=== PATIENT | female | born 1975 | race Caucasian/White ===

== ENCOUNTER → 2018-05-10 16:29 | Outpatient (CLI) | payer BC, SELFPAY ==
--- NOTE | 2018-05-10 16:32 | US_ITS ---
STUDY: ULTRASOUND OF THE FEMALE PELVIS - COMPLETE REASON FOR EXAM: Female, 42 years old. Cramping LMP: 04/21/2018 TECHNIQUE: Transabdominal and Transvaginal TECHNICAL QUALITY: Adequate. COMPARISON: None. FINDINGS: The uterus is anteverted and is in a midline position. The uterus measures 10.4 x 5.7 x 4.0 cm. There is a Nabothian cyst of the cervix. The endometrium measures 9 mm in thickness, and is hyperechoic. There is no demonstrated endometrial mass. There is no demonstrated myometrial mass. I.U.D. - The patient does not have an I.U.D. The right ovary is visualized. The right ovary measures 3.7 x 2.1 x 2.7 cm. There is no right ovarian cyst or ovarian mass. There is no visualized right adnexal mass or complex lesion. There is normal arterial and normal venous vascularity. The left ovary is visualized. The left ovary measures 2.7 x 2.4 x 2.2 cm. There is no left ovarian cyst or ovarian mass. There is no visualized left adnexal mass or complex lesion. There is normal arterial and normal venous vascularity. There is no fluid in the cul-de-sac. The pre void volume of the bladder was 730 ml. The post void volume of the bladder was ml. Polycystic ovary disease: No. US/Pelvic (Non ) IMPRESSION: Normal female pelvis. Electronically Signed: Darío Chandra DO at 18:02 EDT Tel , Service support ,
--- NOTE | 2018-05-10 16:42 | US_ITS ---
STUDY: ULTRASOUND OF THE FEMALE PELVIS - COMPLETE REASON FOR EXAM: Female, 42 years old. Cramping LMP: 04/21/2018 TECHNIQUE: Transabdominal and Transvaginal TECHNICAL QUALITY: Adequate. COMPARISON: None. FINDINGS: The uterus is anteverted and is in a midline position. The uterus measures 10.4 x 5.7 x 4.0 cm. There is a Nabothian cyst of the cervix. The endometrium measures 9 mm in thickness, and is hyperechoic. There is no demonstrated endometrial mass. There is no demonstrated myometrial mass. I.U.D. - The patient does not have an I.U.D. The right ovary is visualized. The right ovary measures 3.7 x 2.1 x 2.7 cm. There is no right ovarian cyst or ovarian mass. There is no visualized right adnexal mass or complex lesion. There is normal arterial and normal venous vascularity. The left ovary is visualized. The left ovary measures 2.7 x 2.4 x 2.2 cm. There is no left ovarian cyst or ovarian mass. There is no visualized left adnexal mass or complex lesion. There is normal arterial and normal venous vascularity. There is no fluid in the cul-de-sac. The pre void volume of the bladder was 730 ml. The post void volume of the bladder was ml. Polycystic ovary disease: No. US/Transvaginal Non- IMPRESSION: Normal female pelvis. Electronically Signed: Darío Chandra DO at 18:02 EDT Tel , Service support ,
== END ==
PROVIDERS: Family Provider Internal Medicine; PCP Internal Medicine; Visit Provider Internal Medicine
DX: R10.9 Unspecified abdominal pain (principal)
CPT/HCPCS: 76830; 76856; 93976

== ENCOUNTER → 2018-05-17 07:55 | Outpatient (CLI) | payer BC, SELFPAY ==
--- NOTE | 2018-05-17 07:57 | US_ITS ---
STUDY: ABDOMINAL ULTRASOUND - RIGHT UPPER QUADRANT REASON FOR VISIT: Female, 42 years old. Cramping abdominal pain. TECHNIQUE: Ultrasound evaluation of the right upper quadrant was performed with real-time and static wilder-scale imaging. TECHNICAL QUALITY: Adequate. COMPARISON: Comparison is made with prior ultrasound dated October 10, 2011. FINDINGS: Liver: The liver measures 14.2 cm. There is increased echogenicity consistent with fatty infiltration. The bile ducts are within normal limits. There is hepatic color flow. The direction of portal flow is hepatopetal. There is no demonstrated mass lesion. Gallbladder: Normal distended gallbladder. The gallbladder wall measures 2.4 mm. There is a negative sonographic Horvath's sign. There is no pericholecystic fluid. There is a solitary echogenic gallstone within the gallbladder. This measures 5 mm x 5 mm x 9 mm. Common Bile Duct (C.B.D.): The common bile duct measures 1.5 mm. Pancreas: Normal size of the head, body and tail of the pancreas. There is normal echogenicity of the pancreas. There is no demonstrated pancreatic mass or cyst. Right Kidney: Normal size of the right kidney. The right kidney measures 10.3 cm x 5.8 cm x 5.4 cm. Normal renal cortex. The right cortex measures 1.7 cm. There is no demonstrated renal mass or cyst. There is no right hydronephrosis. US/Gallbladder IMPRESSION: Fatty infiltration of the liver. Solitary gallstone measuring 5 mm x 5 mm x 9 mm. Electronically Signed: Layton Farr MD at 9:50 EDT Tel [phone], Service support ,
== END ==
PROVIDERS: Family Provider Internal Medicine; PCP Internal Medicine; Visit Provider Internal Medicine
DX: K76.0 Fatty (change of) liver, not elsewhere classified (principal); K80.80 Other cholelithiasis without obstruction
CPT/HCPCS: 76705

== ENCOUNTER → 2018-07-09 09:45 | Outpatient (CLI) | payer BC, SELFPAY ==
[2018-07-10 15:25] LABS: HPV Reflexed? NOT INDICATED
== END ==
PROVIDERS: Visit Provider Obstetrics & Gynecology
DX: Z12.4 Encounter for screening for malignant neoplasm of cervix (principal)
CPT/HCPCS: 88175; G0145

== ENCOUNTER → 2018-11-15 08:19 | Outpatient (CLI) | payer BC, SELFPAY ==
--- NOTE | 2018-11-15 08:22 | BI_ITS ---
MAMMOGRAPHY - BILATERAL SCREENING REASON FOR EXAM: Female, 42 years old. Routine annual screening examination. PERTINENT HISTORY: Grandmother with breast cancer. Aunt with breast cancer. TECHNIQUE: Digital bilateral breast nathan (3D mammographic acquisition) in the CC and MLO projections. 2-D mediolateral oblique (MLO) and craniocaudad (CC) views of both breasts were obtained. CAD: Full Field Digital Mammography with Computer Added Detection was performed. COMPARISON: Comparison is made with prior examination dated August 14, 2017 and February 04, 2016. FINDINGS: Breast Composition: The breasts are almost entirely fatty. There are no dominant masses or suspicious calcifications. Stable small benign-appearing bilateral axillary lymph nodes. No other significant abnormalities are identified. There has been no significant change since the prior study. BI/SCREENING MAMM (CAD), BILAT IMPRESSION: Stable bilateral screening mammogram. Yearly follow-up mammogram recommended. (A) ASSESSMENT CATEGORY: BIRADS Category 2: Benign. A letter regarding these results will be sent to the patient by the facility within 30 days. Approximately 10% of breast cancers are not detected by mammography. A normal mammogram should not delay biopsy of a clinically suspicious abnormality. [id number] Electronically Signed: Layton Farr MD at 9:37 EST Tel [phone], Service support ,
== END ==
PROVIDERS: Family Provider Internal Medicine; PCP Internal Medicine; Referring Provider Obstetrics & Gynecology; Visit Provider Obstetrics & Gynecology
DX: Z12.31 Encounter for screening mammogram for malignant neoplasm of breast (principal); Z80.3 Family history of malignant neoplasm of breast
CPT/HCPCS: 77063; 77067

== ENCOUNTER → 2019-03-13 11:24 | Outpatient (CLI) | payer BC, SELFPAY ==
--- NOTE | 2019-03-13 10:30 | CYST_PTH ---
PATIENT: SUKH ACOSTA LOC: [facility] U#:[id number] AGE/SX: 49/F ROOM: RE03/13/[address]: Dr. Sneha Montes MD : 1975 BED: DIS: SPEC #: [id number] RECD: 03/13/19 10:55 STATUS: DELILAH REQ #: [id number] JONATAN: 03/13/19 10:[address]: Sneha Montes DEPT: SURGICAL PATHOLOGY RECD BY: Quan Buck ENTERED: 03/13/19 11:23 SP TYPE: Cyst OTHR DR: Dr. Daya Rose MD Tissues: Abdomen, NOS Procedures: Surgery Specimen Level III Comments: @ Originally on account #[id number] Req #[id number] HEADER OPERATION: Excision of sebaceous cyst RUQ abdomen PRE-OP DIAGNOSIS: Sebaceous cyst TISSUE SUBMITTED: Cyst RUQ abdomen MICROSCOPIC DIAGNOSIS Cyst right upper quadrant abdomen, excision: Epidermal inclusion cyst with focal chronic inflammation. ALDAIR:nazario 03/14/19 MICROSCOPIC DESCRIPTION Slides are reviewed. GROSS DESCRIPTION Received in fixative is one container labeled with the patient's name and designated cyst RUQ abdomen. The specimen consists of fragments of cyst wall and monaco-white cyst content measuring in aggregate 1.5 x 1.5 x 0.5 cm. The specimen is totally submitted in one cassette. / CE:nazario 03/13/19 TC:5 CPT: 49468
[2019-03-13 10:46] VITALS: BMI 35.5
== END ==
PROVIDERS: Family Provider Internal Medicine; PCP Internal Medicine; Referring Provider Surgery; Visit Provider Surgery
DX: L72.3 Sebaceous cyst (principal)
CPT/HCPCS: 88304

== ENCOUNTER → 2019-08-26 10:55 | Outpatient (CLI) | payer BC, SELFPAY ==
[2019-03-13 10:46] VITALS: BMI 35.5
[2019-08-26 14:02] LABS: M R Staph aureus DNA By PCR Negative (Negative); Probe Check PASS; Specimen Processing Control PASS
== END ==
PROVIDERS: Family Provider Internal Medicine; PCP Internal Medicine; Referring Provider Internal Medicine; Visit Provider Internal Medicine
DX: L73.9 Follicular disorder, unspecified (principal)
CPT/HCPCS: 87641

== ENCOUNTER → 2019-11-11 10:39 | Outpatient (CLI) | payer BC, SELFPAY ==
[2019-03-13 10:46] VITALS: BMI 35.5
[2019-11-11 12:26] LABS: Absolute Lymphocyte Count 2.76 X10^3/uL (0.83-4.51); Absolute Neutrophil Count 6.8 X10^3/uL (2.0-7.7); Basophil# 0.06 X10^3/uL; Basophil% 0.6 % (0-1); Eosinophil# 0.12 X10^3/uL; Eosinophils% 1.2 % (0-5); Hemoglobin 14.3 g/dL (12.0-15.0); Lymphocyte # 2.76 X10^3/ul (4.0); Lymphocyte % 26.8 % (19-41); Mean Corp Hgb Conc 33.3 g/dL (32-36); Mean Corpuscular Hgb 28.9 pg (27.0-32.0); Mean Corpuscular Volume 86.9 fL (81-99); Monocyte# 0.53 X10^3/uL; Monocyte% 5.1 % (0-10); NRBC Flagged by Analyzer 0 % (0-5); Neutrophil % 65.9 % (47-70); Platelet Count 337 K/mm3 (150-450); RBC Distribution Width CV 12.8 % (11.6-14.6); RBC Distribution Width SD 40.3 fl (35.1-43.9); Red Blood Count 4.95 M/mm3 (4.2-5.4); White Blood Count 10.3 K/mm3 (4.4-11.0)
[2019-11-11 14:19] LABS: ALB/GLOB Ratio 0.9 RATIO (0.9-2.4); AST(SGOT) 15 U/L (15-37); Alanine Aminotransfer ALT/SGPT 28 U/L (13-56); Albumin, Serum 3.5 g/dL (3.2-5.0); Alkaline Phosphatase 63 U/L (45-117); Anion Gap 8 (5-15); BUN 9 mg/dL (7-18); BUN/Creat Ratio 12.5 RATIO (10-20); Calcium,Total 8.7 mg/dL (8.5-10.1); Chloride 103 mmol/L (98-107); Creatinine, Serum 0.72 mg/dL (0.55-1.02); EST Glomerular Filtration Rate 93 mL/min (>60); Est Glom Filt Rate - Afr Amer 112 mL/min (>60); Ferritin 17 ng/mL (8-252); Follicle Stimulating Hormone 4.4 mIU/mL; Globulin 4.1 g/dL (2.2-4.2); Glucose 94 mg/dL (74-106); Luteinizing Hormone 0.9 mIU/mL; Potassium 4.2 mmol/L (3.5-5.1); Protein, Total 7.6 g/dL (6.4-8.2); Sodium Level 136 mmol/L (136-145); T4 Free Direct 1.13 ng/dL (0.76-1.46)
[2019-11-13 07:07] LABS: DHEA Sulfate 26.6 ug/dL (41.2-243.7)
[2019-11-13 08:19] LABS: Androstenedione 48 ng/dL (41-262); Thyroid Peroxidase AB 15 IU/mL (0-34)
== END ==
PROVIDERS: Family Provider Internal Medicine; PCP Internal Medicine; Referring Provider Dermatology Pediatric Dermatology; Visit Provider Dermatology Pediatric Dermatology
DX: E28.2 Polycystic ovarian syndrome (principal); L64.8 Other androgenic alopecia
CPT/HCPCS: 36415; 80053; 82157; 82627; 82728; 83001; 83002; 84439; 84443; 84480; 85025; 86038; 86376; 82626

== ENCOUNTER → 2019-12-02 08:00 | Outpatient (CLI) | payer BC, SELFPAY ==
[2019-03-13 10:46] VITALS: BMI 35.5
--- NOTE | 2019-12-02 08:03 | BI_ITS ---
MAMMOGRAPHY - BILATERAL SCREENING REASON FOR EXAM: Female, 43 years old. Routine annual screening examination. PERTINENT HISTORY: Grandmother with breast cancer. Aunt with breast cancer. TECHNIQUE: Digital bilateral breast mingo (3D mammographic acquisition) in the CC and MLO projections. 2-D mediolateral oblique (MLO) and craniocaudad (CC) views of both breasts were obtained. CAD: Full Field Digital Mammography with Computer Added Detection was performed. COMPARISON: Comparison is made with prior study dated November 15, 2018 and August 14, 2017. FINDINGS: Breast Composition: The breasts are almost entirely fatty. There are no dominant masses or suspicious calcifications. No other significant abnormalities are identified. There has been no significant change since the prior study. BI/SCREEN MAMM (CAD) W/MINGO BILAT IMPRESSION: Stable bilateral screening mammogram. Yearly follow-up mammogram recommended. (A) ASSESSMENT CATEGORY: BIRADS Category 1: Negative. A letter regarding these results will be sent to the patient by the facility within 30 days. Approximately 10% of breast cancers are not detected by mammography. A normal mammogram should not delay biopsy of a clinically suspicious abnormality. [id number] Electronically Signed: Layton Farr, at 9:12 EST , Service support ,
== END ==
PROVIDERS: Family Provider Internal Medicine; PCP Internal Medicine; Referring Provider Obstetrics & Gynecology; Visit Provider Obstetrics & Gynecology
DX: Z12.31 Encounter for screening mammogram for malignant neoplasm of breast (principal)
CPT/HCPCS: 77063; 77067

== ENCOUNTER → 2019-12-12 | Outpatient (CLI) | payer BC, SELFPAY ==
[2019-03-13 10:46] VITALS: BMI 35.5
--- NOTE | 2019-12-11 | EMB_PTH ---
PATIENT: SUKH ACOSTA [facility] U#:[id number] AGE/SX: 43/F ROOM: RE12/12/[address]: Dr. Sofie Aguilera MD : 1975 BED: DIS: 12/12/2019 SPEC #: [id number] RECD: 12/12/19 13:01 STATUS: DELILAH REJudith #: [id number] JONATAN: 12/11/19 00:[address]: Sofie Slaughter DEPT: SURGICAL PATHOLOGY RECD BY: Asha Cadena ENTERED: 12/12/19 14:11 SP TYPE: ENDOM BX/C THERON DR: Dr. Daya Rose MD Tissues: Endometrium, NOS Procedures: Surgery Specimen Level IV HEADER OPERATION: Endometrial biopsy PRE-OP DIAGNOSIS: LMP 12/07/29 TISSUE SUBMITTED: Endometrial biopsy MICROSCOPIC DIAGNOSIS Endometrial biopsy: Proliferative endometrium. SJ:nazario 12/15/19 MICROSCOPIC DESCRIPTION Slides are reviewed. GROSS DESCRIPTION Received in fixative is one container labeled with the patient's name and designated endometrial biopsy. The specimen consists of multiple irregular fragments of dark monaco soft tissue that in aggregate measure 2.5 x 1 x 0.1 cm. The specimen is totally submitted in one cassette. / AM:nazario 12/12/19 TC:4 CPT: 50118
== END | disposition home or self-care (01) ==
LOC: LABSPEC 13:44
PROVIDERS: PCP Internal Medicine; Referring Provider Obstetrics & Gynecology; Visit Provider Obstetrics & Gynecology
DX: N92.1 Excessive and frequent menstruation with irregular cycle (principal)
CPT/HCPCS: 88305

== ENCOUNTER → 2020-01-07 15:01 | Outpatient (CLI) | payer BC, SELFPAY ==
[2019-03-13 10:46] VITALS: BMI 35.5
[2020-01-09 16:07] LABS: Endomysial Antibody IgA Negative (Negative)
[2020-01-09 23:49] LABS: Immunoglobulin A 142 mg/dL (87-352); t-Transglutaminase IgA <2 U/mL (0-3)
== END ==
PROVIDERS: PCP Internal Medicine; Referring Provider Internal Medicine Gastroenterology; Visit Provider Internal Medicine Gastroenterology
DX: R19.7 Diarrhea, unspecified (principal)
CPT/HCPCS: 36415; 82784; 83516; 86140; 86255

== ENCOUNTER → 2020-12-08 | Outpatient (CLI) | payer BC, SELFPAY ==
[2020-05-04 15:16] VITALS: BMI 35.5
[2020-12-13 17:00] LABS: HPV APTIMA, High Risk Negative (Negative)
== END | disposition home or self-care (01) ==
LOC: LABSPEC 14:43
PROVIDERS: PCP Internal Medicine; Visit Provider Obstetrics & Gynecology
DX: Z12.4 Encounter for screening for malignant neoplasm of cervix (principal)
CPT/HCPCS: 87624; 88175; G0145

== ENCOUNTER → 2020-12-22 13:32 | Outpatient (CLI) | payer BC, SELFPAY ==
[2020-05-04 15:16] VITALS: BMI 35.5
--- NOTE | 2020-12-22 13:34 | BI_ITS ---
MAMMOGRAPHY - BILATERAL SCREENING REASON FOR EXAM: Female, 44 years old. Routine annual screening examination. PERTINENT HISTORY: Grandmother with breast cancer. Aunt with breast cancer. TECHNIQUE: Digital bilateral breast mingo (3D mammographic acquisition) in the CC and MLO projections. 2-D mediolateral oblique (MLO) and craniocaudad (CC) views of both breasts were obtained. CAD: Full Field Digital Mammography with Computer Added Detection was performed. COMPARISON: Comparison is made with prior study dated 12/02/2019 and 11/15/2018. FINDINGS: Breast Composition: The breasts are almost entirely fatty. There are no dominant masses or suspicious calcifications. Stable small benign-appearing bilateral axillary lymph nodes. No other significant abnormalities are identified. There has been no significant change since the prior study. BI/SCRN MAMM (CAD)W/MINGO BILAT IMPRESSION: Stable bilateral screening mammogram. Yearly follow-up mammogram recommended. (A) ASSESSMENT CATEGORY: BIRADS Category 2: Benign. A letter regarding these results will be sent to the patient by the facility within 30 days. Approximately 10% of breast cancers are not detected by mammography. A normal mammogram should not delay biopsy of a clinically suspicious abnormality. [id number] Electronically Signed: Layton Farr MD at 14:32 EST , Service support ,
== END ==
PROVIDERS: PCP Internal Medicine; Referring Provider Obstetrics & Gynecology; Visit Provider Obstetrics & Gynecology
DX: Z12.31 Encounter for screening mammogram for malignant neoplasm of breast (principal)
CPT/HCPCS: 77063; 77067

== ENCOUNTER 2021-08-11 08:30 | Day surgery (SDC) | payer BC, SELFPAY ==
[2021-08-05 17:21] LABS: Hematocrit 42.6 % (37-47); Hemoglobin 14.5 g/dL (12.0-15.0); Mean Corpuscular Hgb 30.3 pg (27.0-32.0); Mean Corpuscular Volume 88.9 fL (81-99); Mean Platelet Vol. 10.5 fl (6.2-12.0); Platelet Count 331 K/mm3 (150-450); RBC Distribution Width CV 12.4 % (11.6-14.6); RBC Distribution Width SD 40.6 fl (35.1-43.9); Red Blood Count 4.79 M/mm3 (4.2-5.4); White Blood Count 12.5 K/mm3 (4.4-11.0)
[2021-08-05 17:37] LABS: Internal QC Validated? YES +Cl - CLEAR BKGD; Pregnancy, Urine Negative Negative
[2021-08-05 17:47] LABS: International Normalized Ratio 0.9
[2021-08-05 17:48] LABS: Partial Thromboplast Time 27.8 Seconds (24.1-36.2)
[2021-08-11 09:00] VITALS: BP 132/90; PULSE 118; RESP 18; TEMP 36.5; O2SAT 100; BMI 36.0
[2021-08-11] MEDS: Lactated Ringers 1,000 ML 100 ML IV (09:05)
[2021-08-11 09:14] LABS: Internal QC Validated? YES +Cl - CLEAR BKGD; Pregnancy, Urine Negative Negative
--- NOTE | 2021-08-11 09:27 | HP.PCM.OB_ITS ---
History and Physical Date of Admission: 08/11/21 Surgical History and Physical Date: 08/05/2021 Name: SUKH ACOSTA Age: 45 Date of : 1975 Sukh Acosta, a 45 year old female 1 0 0 0 1, presents for Vulvar cyst removal on August 11, 2021 at 10:00am. -- Patient has a hx of recurrent right vulvar cyst associated with hidradenitis. This has recurrent several times a year for the last 4-5 years and is bothersome, requiring repetitive antibiotic and steroid treatments locally. MEDICATIONS HISTORY: Patient is also takin. Effexor XR 75 mg capsule,extended release, daily 2. metformin ER 500 mg 24 hr tablet,extended release, 1 in am and 2 pm 3. Singulair 10 mg tablet, daily 4. trazodone 50 mg tablet, q hs 5. spironolactone 100 mg tablet, 1 and half tabs daily ALLERGIES: Sulfonamides, Santacruz, fever, Toradol, Faint and diarrhea, Naproxen, Faint and diarrhea, Naproxen, Intolerance-diarrhea, Sulfa (Sulfonamide Antibiotics), Fever, Toradol, Intolerance-diarrhea, Celexa, Hives and/or rash, Lexapro, Hives and/or rash, Latex, Rash, Latex and Rash Infections - chicken pox as a child, yeast infections d/t antibiotic use Illnesses - asthma, hyperinsulemia and Hydradenitis Accidents - no injuries of consequence Hospitalizations - see surgery Review of Systems: GENERAL - Denies fever, or chills SKIN - yeast infections due to Augmentin use EYES - Denies visual changes EARS - Denies difficulty hearing NOSE - Denies nasal congestion or bleeding MOUTH - Denies sore throat or difficulty swallowing NECK - Denies pain or swelling RESPIRATORY - Denies shortness of breath or wheezing CARDIOVASCULAR - Denies palpitations or chest pain GASTROINTESTINAL - Denies nausea, vomiting, diarrhea, constipation GENITOURINARY - cyst vulva MUSCULOSKELETAL - Denies joint or muscle pain NEUROLOGICAL - Denies localized numbness or weakness PSYCHIATRIC - Denies depression or anxiety ENDOCRINE - Denies heat or cold intolerance, weight loss or gain HEMATO-IMMUNOLOGIC - Denies excesive bleeding with cuts SOCIAL HISTORY: Alcohol Use - denies drinking Smoking - denies smoking Diet - no particular diet Lifestyle - Exercise - walking Seat Belt Use - always Employer - [employer] Job Description - counselor Illicit Drug Use - denies use of street drugs Sexual Activity - single sexual partner and Hours Worked - 30 wk Spouse-Sig Other Name - Dave Spouse-Sig Other Occupation - [employer], computer networking instructor and payroll Children Name(s) - Vivek Control - condoms FAMILY HISTORY: Maternal history of Uterine cancer. Paternal history of Breast cancer. Mother: HTN, lymphoma, Thyroid problems and Uterine cancer. Father: skin cancer. Paternal Grandmother: Breast cancer. Maternal Aunt: breast ca. MENSTRUAL HISTORY: LMP Known?- DefiniteAmount/Duration - 2 to 3 days, Regularity - missed periods, Prior Menses - 09/28/2020, LMP - 06/12/21, Age Onset Menarche - 10 PAST PREGNANCIES: Total Pregnancies - 1; Full Term Pregnancies - 1; Premature - 0; Abortions, Induced - 0; Abortions, Spontaneous - 0; Ectopics - 0; Multiple Births - 0; Living Children - 1 SURGICAL HISTORY: 1. dental surgery ; - 2. R ankle reconstruction from multiple sprains ; - 3. 09/30/2007 ; Jen Villegas M.D. - Failure to progress 4. anal cyst, 11/19 ; - PHYSICAL EXAM BP- 140/76 Sitting, Right arm, regular cuff Temp- 98.4 Taken Orally Weight- 227.95545 lbs Height- 67.25 inch BMI:[id number] CONSTITUTIONAL - NAD, well nourished, and well developed SKIN - No rash, lesions, or ulcers HEENT - normocephalic, atraumatic, sclerae anicteric LUNGS - clear to auscultation, no wheezing, no crackles, no rales and normal respiratory rate and rhythm CARDIAC - normal heart sounds and physiologic rhythm EXTREMITIES - No edema or calf tenderness NEUROLOGICAL - normal gait, normal balance, normal motor PSYCHIATRIC - A and O to time, place, person, mood and affect External Genitial Vagina - non-tender without lesions Urethra/Urethral Meatus - non-tender Bladder - non-tender Vagina - vaginal whitehead are pink and moist without loss of rugae and no evidence of atropy Cervix - without cervical motion tenderness and has normal size and features without evident lesions Uterus - 5-6 cm in size, mobile and nontender Adnexa - clear without massess or tenderness Pap - done ASSESSMENT/PLAN: 1. Hydradenitis Persistent right vulvar cyst associated with Hidradenitis Plan for surgical excision
--- NOTE | 2021-08-11 10:00 | CYST_PTH ---
PATIENT: SUKH ACOSTA [place] [facility] [place][id number] AGE/SX: 45/F ROOM: RE08/11/[address]: Dr. Sofie Aguilera MD : 1975 BED: DIS: 08/11/2021 SPEC #: [id number] RECD: 08/11/21 12:47 STATUS: DELILAH REQ #: [id number] JONATAN: 08/11/21 10:[address]: Sofie Slaughter DEPT: SURGICAL PATHOLOGY RECD BY: Camila Goss ENTERED: 08/12/21 08:40 SP TYPE: Cyst OTHR DR: Dr. Daya Rose MD Tissues: Vulva, NOS Procedures: Surgery Specimen Level III HEADER OPERATION: Vulvar cyst excision PRE-OP DIAGNOSIS: Hydradenitis TISSUE SUBMITTED: Right vulvar cyst MICROSCOPIC DIAGNOSIS Right vulvar cyst, excision: Focal ulceration, acute and chronic inflammation and granulation tissue reaction, clinically hidradenitis. SJ:nazario 08/15/2021 MICROSCOPIC DESCRIPTION Slides are reviewed. GROSS DESCRIPTION Received in fixative is one container labeled with the patient's name and designated vulvar cyst right. The specimen consists of an irregular piece of monaco soft tissue that measures 1.6 x 1 x 0.8 cm. The specimen is bisected and submitted entirely in one cassette. / ALDAIR:nazario 08/12/21 TC:2 CPT: 60013
[2021-08-11] MEDS: Lidocaine 1% /Epi 1:100 (20ml) 20 ML Vial (10:43)
[2021-08-11] MEDS: Bacitracin 500 UNITS/GM PACKET (10:49)
--- NOTE | 2021-08-11 10:52 | PCM.DC ---
Discharge Instructions Diet Discharge Diet: No restrictions Activity Discharge Activity: Return to Normal Activity, May Shower and May Take a Tub Bath May resume sexual activity in: 4 weeks Lifting Restrictions: 20 lb Dressing / Incision Call your doctor if your incision/area has: Continuous Slow Oozing, Increased Pain/ Swelling, Increased Redness and Swelling at the incision site Call your doctor if you observe: Fever of 101 or Higher, Inability to urinate, Shortness of breath, Chest pain, Calf discomfort and Uncontrolled pain Cleanse incision/area with: Soap & Water Follow Up Care Please Follow Up With: Sofie Slaughter MD When: 2 weeks Test Results: Test results from this visit will be discussed in further detail at your follow-up appointment, if applicable. Discharge Plan Admission Primary Reason for Your Visit: Vulvar Cyst Attending Provider: Sofie Slaughter Primary Care Provider: Daya Rose Discharge Orders/Prescriptions Prescriptions: New ibuprofen 600 mg tablet 600 mg PO Q8H PRN (Reason: pain) Qty: 30 RF: 0 oxycodone 5 mg capsule 5 mg PO Q6H PRN (Reason: pain) 3 Days Qty: 5 RF: 0 Continued montelukast [Singulair] 10 mg tablet 10 mg PO DAILY RF: 0 spironolactone 100 mg tablet 150 mg PO DAILY RF: 0 ferrous sulfate 325 mg (65 mg iron) tablet 325 mg PO DAILY RF: 0 ergocalciferol (vitamin D2) 1,250 mcg (50,000 unit) capsule 1,250 mcg PO .TWICE PER WEEK RF: 0 metformin 500 mg tablet 1,500 mg PO DAILY RF: 0 venlafaxine [Effexor XR] 75 mg capsule,extended release 24hr 75 mg PO DAILY RF: 0 albuterol sulfate [ProAir HFA] 90 mcg/actuation HFA aerosol inhaler 1 inh INHALATION ONCE PRN (Reason: Wheezing) RF: 0 amoxicillin-pot clavulanate [Augmentin] 875-125 mg Tablet 1 tab PO DAILY RF: 0 loperamide 2 mg Capsule 2 mg PO Q4H PRN (Reason: loose stools) RF: 0 Probiotic 100 billion cell Capsule 1 cap PO DAILY RF: 0 Referrals / Follow Up: Daya Rose MD [Primary Care Provider] - Disposition Disposition (needs filled in before D/C Order can be placed): Home, Self Care
--- NOTE | 2021-08-11 10:57 | PCM.OPRPT ---
Problems Associated Problem List Diagnoses (1) Vulvar cyst: Report of Operation Date of Procedure: 08/11/21 Pre-Operative Diagnosis: 1. Hidradenitis 2. Vulvar cyst Post-Operative Diagnosis: 1. Hidradenitis 2. Vulvar cyst Surgery/Procedure Performed:: Vulvar cyst removal Description of Surgical Findings:: Approximately 1.5cm vulvar cyst at right labia minora Surgeon: Sofie Slaughter vehicle fuel systems converter: Tim Lan Type of Anesthesia: Local MAC Anesthesiologist: Altagracia Briggs Specimen's removed: right vulvar cyst Estimated Blood Loss (mL): 10 Fluids Replaced: 1000 ml Description of Procedure: Indications: 45-year-old woman with a history of PCOS and hidradenitis suppurativa presents for scheduled right vulvar cyst excision. She has had recurrence over the last 4 to 5 years of a right vulvar nodule in association with the hidradenitis. She has undergone numerous local steroid injections as well as courses of antibiotics for resolution with recurrence and desires definitive management. Procedure risks, benefits, indications and alternatives were reviewed. Procedure: The patient was brought to the operating room and spinal was performed. She is placed in the dorsal supine position and induced under MAC procedure. She was repositioned to dorsolithotomy. The perineum was prepped and draped in sterile fashion. 1% lidocaine with epinephrine 1 and 100,000 was injected surrounding the left apical labia minora at the site of the vulvar cystic nodule. The right labia minora was grasped using Allis clamps and an approximately 3 cm incision was made using a scalpel. Using sharp dissection the cyst was identified and removed intact. 3-0 Vicryl was used to reapproximate the dissected space. The skin was reapproximated using 3-0 Vicryl serial mattress sutures. There is good hemostasis. The procedure was complete. The patient was placed into dorsal supine, awakened and returned to the recovery room without complication. Sponge and needle counts were correct x2. Complications None Admit VTE Documentation VTE Present on Admission: No VTE Mechan Device Prophylaxis: SCD's VTE Pharm Prophylaxis ordered?: No Reason prophylaxis not ordered:: Procedure Not Indicated
[2021-08-11 10:58] VITALS: BP 109/77; BP 132/90; PULSE 82; RESP 18; TEMP 36.6; O2SAT 100
[2021-08-11 11:00] VITALS: BP 112/76; BP 132/90; PULSE 86; RESP 18; O2SAT 100
[2021-08-11 11:07] VITALS: BP 110/73; BP 132/90; PULSE 86; RESP 20; O2SAT 100
[2021-08-11 11:10] VITALS: BP 117/74; BP 118/75; BP 132/90; PULSE 82; PULSE 83; RESP 18; TEMP 36.4; O2SAT 100
[2021-08-11 12:01] VITALS: BP 123/72; BP 132/90; PULSE 87; RESP 16; TEMP 36.8; O2SAT 97
== END 2021-08-11 12:17 | disposition home or self-care (01) ==
LOC: SDC 08:31 → AC 08:35
PROVIDERS: Anesthesiology; PCP Internal Medicine; Referring Provider Obstetrics & Gynecology; Visit Provider Obstetrics & Gynecology
PROC: (CPT 11470; principal; 2021-08-11 09:45)
DX: L73.2 Hidradenitis suppurativa (principal); E78.00 Pure hypercholesterolemia, unspecified; E61.1 Iron deficiency; F32.9 Major depressive disorder, single episode, unspecified; Z79.899 Other long term (current) drug therapy; Z86.16 Personal history of COVID-19
CPT/HCPCS: 00400; 11470; 36415; 81025; 85027; 85610; 85730; 86850; 86900; 86901; 88304; 88305; J7120; J2405

== ENCOUNTER 2021-12-13 10:50 | Outpatient (CLI) | payer BC, SELFPAY | END 2021-12-13 23:59 | disposition home or self-care (01) | LOC: LABSPEC 10:52 | PROVIDERS: PCP Internal Medicine; Visit Provider Internal Medicine | DX: R05.9 Cough, unspecified (principal) | CPT/HCPCS: 87635; U0003; U0005 ==

== ENCOUNTER → 2022-02-24 | Outpatient (CLI) | payer BC, SELFPAY ==
--- NOTE | 2022-02-24 09:55 | BI_ITS ---
MAMMOGRAPHY - BILATERAL SCREENING 3-D TOMOSYNTHESIS REASON FOR EXAM: Female, 46 years old. SCREENING PERTINENT HISTORY: No significant family history. TECHNIQUE: 2-D mammograms and 3-D Tomosynthesis of the breast (s) were performed. CAD was performed. COMPARISON: 12/22/2020 FINDINGS: The breast composition is composed of scattered fibroglandular density. Scattered benign calcifications are seen. No dense spiculated masses or suspicious microcalcifications are identified. No architectural distortion is identified. There is no skin thickening or retraction. There has been no significant change since the prior study. BI/SCRN MAMM (CAD)W/MINGO BILAT IMPRESSION: No mammographic signs of malignancy. Routine yearly mammograms recommended. ASSESSMENT CATEGORY: BIRADS Category 1: Negative. A letter regarding these results will be sent to the patient by the facility within 30 days. FOLLOW UP RECOMMENDATION: Yearly follow up mammogram recommended. (A) Approximately 10% of breast cancers are not detected by mammography. A normal mammogram should not delay biopsy of a clinically suspicious abnormality. Electronically Signed: Abdoul Meza MD at 13:37 EDT ,
== END | disposition home or self-care (01) ==
LOC: OPBI 09:54
PROVIDERS: PCP Internal Medicine; Referring Provider Obstetrics & Gynecology; Visit Provider Obstetrics & Gynecology
DX: Z12.31 Encounter for screening mammogram for malignant neoplasm of breast (principal)
CPT/HCPCS: 77063; 77067

== ENCOUNTER → 2022-08-08 | Outpatient (CLI) | payer BC, SELFPAY ==
--- NOTE | 2022-08-08 13:13 | ECHOCS_ITS ---
Reason For Study: RBBB Procedure This was a 2D Doppler, Color Flow transthoracic echocardiogram. The study was technically difficult. Contrast injection was performed. Exam performed in department. Left Ventricle Normal LV size. Left ventricular systolic function is normal. The estimated ejection fraction is 65 %. No evidence for diastolic dysfunction. No regional wall motion abnormalities noted. Right Ventricle Normal RV size. Normal systolic function. Atria Normal left atrium. Normal right atrium. No doppler evidence for ASD. Mitral Valve There is no mitral annular calcification. Normal mitral valve. Tricuspid Valve Normal tricuspid valve. Trivial tricuspid valve insufficiency. Unable to estimate RV systolic pressure/pulmonary artery pressure due to technically difficult study. Aortic Valve Trisinus/trileaflet aortic valve. Normal aortic valve. Pulmonic Valve The pulmonic valve is not well visualized. Great Vessels Normal sized aortic root. Pericardium/Pleural No pericardial effusion. Medication 22 gauge I.V. with prn adaptor inserted into right arm. Diluted definity 2ml given slow IV push to enhance endocardial definition. MMode/2D Measurements & Calculations LVIDd: 4.1 cm IVSd: 0.75 cm Ao root diam: 3.0 cm LVIDs: 2.2 cm LVPWd: 1.2 cm FS: 46.3 % LAV(MOD-sp4): 36.3 ml LVAd ap4: 29.1 cm2 SV(MOD-sp4): 46.2 ml LVLd ap4: 8.3 cm EDV(MOD-sp4): 84.4 ml EDV(sp4-el): 87.0 ml LVAs ap4: 19.0 cm2 LVLs ap4: 7.6 cm ESV(MOD-sp4): 38.2 ml ESV(sp4-el): 40.3 ml EF(MOD-sp4): 54.8 % EF(sp4-el): 53.7 % SV(sp4-el): 46.7 ml LA A4 area: 15.4 cm2 LA dimension(2D): 2.7 cm RA A4 area: 9.0 cm2 Time Measurements MV dec time: 0.20 sec Doppler Measurements & Calculations MV E max adrian: 72.9 cm/sec Lat Peak E' Adrian: 10.3 cm/sec Med Peak E' Adrian: 7.3 cm/sec MV A max adrian: 83.5 cm/sec E/E' lat: 7.1 E/E' med: 9.9 MV E/A: 0.87 MV V2 max: 78.6 cm/sec MV dec slope: 369.3 cm/sec2 Ao V2 max: 122.3 cm/sec MV max P.5 mmHg Ao max P.0 mmHg MV V2 mean: 56.2 cm/sec Ao V2 mean: 85.9 cm/sec MV mean P.4 mmHg Ao mean P.3 mmHg MV V2 VTI: 19.6 cm Ao V2 VTI: 24.1 cm LV V1 max: 100.2 cm/sec PA V2 max: 90.1 cm/sec LV V1 max P.1 mmHg PA max PG (full): 1.5 mmHg LV V1 mean P.2 mmHg PA V2 mean: 62.6 cm/sec LV V1 mean: 67.7 cm/sec PA mean PG (full): 0.87 mmHg LV V1 VTI: 21.0 cm ECHO/Echo Complete W/ Contrast Interpretation Summary The study was technically difficult. Contrast injection was performed. Left ventricular systolic function is normal. The estimated ejection fraction is 65 %. Trivial tricuspid valve insufficiency. Unable to estimate RV systolic pressure/pulmonary artery pressure due to techni nancy difficult study. No evidence for diastolic dysfunction. Ordering Physician: Daya Rose Referring Physician: Daya Rose Performed By: Chrissy Turner RCS
== END | disposition home or self-care (01) ==
LOC: CVS 12:41
PROVIDERS: PCP Internal Medicine; Referring Provider Internal Medicine; Visit Provider Internal Medicine
DX: I45.10 Unspecified right bundle-branch block (principal); I36.1 Nonrheumatic tricuspid (valve) insufficiency
CPT/HCPCS: 93306; Q9957; A4216; C8929

== ENCOUNTER → 2023-03-02 | Outpatient (CLI) | payer BC, SELFPAY ==
--- NOTE | 2023-03-02 08:05 | BI_ITS ---
MAMMOGRAPHY - BILATERAL SCREENING REASON FOR EXAM: Female, 47 years old. Routine annual screening examination. PERTINENT HISTORY: Grandmothers with breast cancer. Aunt with breast cancer. TECHNIQUE: Digital bilateral breast mingo (3D mammographic acquisition) in the CC and MLO projections. 2-D mediolateral oblique (MLO) and craniocaudad (CC) views of both breasts were obtained. CAD: Full Field Digital Mammography with Computer Added Detection was performed. COMPARISON: Comparison is made with prior examination dated February 24, 2022 and December 22, 2020. FINDINGS: Breast Composition: The breasts are almost entirely fatty. There are no dominant masses or suspicious calcifications. Stable small benign appearing bilateral axillary nodes. No other significant abnormalities are identified. There has been no significant change since the prior study. BI/SCRN MAMM (CAD)W/MINGO BILAT IMPRESSION: Stable bilateral screening mammogram. Yearly follow-up mammogram recommended. (A) ASSESSMENT CATEGORY: BIRADS Category 2: Benign. A letter regarding these results will be sent to the patient by the facility within 30 days. Approximately 10% of breast cancers are not detected by mammography. A normal mammogram should not delay biopsy of a clinically suspicious abnormality. [id number] Electronically Signed: Layton Farr MD at 9:05 EDT ,
== END | disposition home or self-care (01) ==
LOC: OPBI 08:03
PROVIDERS: PCP Internal Medicine; Referring Provider Student in an Organized Health Care Education/Training Program; Visit Provider Student in an Organized Health Care Education/Training Program
DX: Z12.31 Encounter for screening mammogram for malignant neoplasm of breast (principal)
CPT/HCPCS: 77063; 77067

== ENCOUNTER → 2025-01-27 | Outpatient (CLI) | payer BC, SELFPAY ==
--- NOTE | 2025-01-27 08:26 | RAD_ITS ---
EXAM: Barium esophagram. CLINICAL HISTORY: Mid esophageal dysphagia recently. COMPARISON: None. TECHNIQUE: See below. FINDINGS: As per clinician request, the patient source administered barium tablet which exhibited normal pulsion down the esophagus and into the stomach. Patient subsequently ingested medium density liquid barium along with room air without difficulty. Esophageal morphology was normal. Motility was normal with exception is noted below. Small axial hiatus hernia was noted accompanied by nonobstructing Schatzki's B ring. Small amount of free gastroesophageal reflux of acid laden barium was induced at which time some lower esophageal spasm was noted. RAD/Esophagus Single Contrast IMPRESSION: Small hiatus hernia. Positive free gastroesophageal reflux. Reading Location: [place] [id number]
== END | disposition home or self-care (01) ==
PROVIDERS: PCP Internal Medicine; Referring Provider Internal Medicine Gastroenterology; Visit Provider Internal Medicine Gastroenterology
DX: R13.10 Dysphagia, unspecified (principal)
CPT/HCPCS: 74220